=== PATIENT | male | born 1965 | race Caucasian/White ===

== ENCOUNTER 2018-05-19 11:18 | Inpatient (IN) | payer OTHER ==
[~2018-05-19] VITALS: Ht 167.6 cm; Wt 63.5 kg
== END 2018-05-21 13:17 | disposition home or self-care (01) | DRG 349 ==
LOC: ER 11:18 → SURH 11:53 → SEC-K 11:53 → SURH 19:51
PROC: 06BY0ZC Excision of Hemorrhoidal Plexus, Open Approach (ICD-10-PCS; principal; 2018-05-19)
PROC: 06LY0CC Occlusion of Hemorrhoidal Plexus with Extraluminal Device, Open Approach (ICD-10-PCS; 2018-05-19)
PROC: 3E0R3BZ Introduction of Anesthetic Agent into Spinal Canal, Percutaneous Approach (ICD-10-PCS; 2018-05-19)
DX: K64.1 Second degree hemorrhoids (principal); K64.8 Other hemorrhoids